=== PATIENT | female | born 1980 | race Caucasian/White ===

== ENCOUNTER 2022-11-09 06:42 | Day surgery (SDC) | payer OTHER ==
[~2022-11-09] VITALS: Ht 170.2 cm; Wt 72.6 kg
== END 2022-11-09 20:00 | disposition home or self-care (01) ==
LOC: CIR.AMB 06:42
PROVIDERS: ATTEND Surgery
DX: D24.1 Benign neoplasm of right breast (principal); N60.91 Unspecified benign mammary dysplasia of right breast; N64.52 Nipple discharge; I10 Essential (primary) hypertension; Z20.822 Contact with and (suspected) exposure to COVID-19; Z87.891 Personal history of nicotine dependence; Z91.041 Radiographic dye allergy status
CPT/HCPCS: 19301; 19281; L8699

== ENCOUNTER 2022-11-09 06:42 | Outpatient (CLI) | payer OTHER | END 2022-11-09 13:25 | disposition home or self-care (01) | LOC: LAB 06:42 | DX: N91.2 Amenorrhea, unspecified (principal) ==